=== PATIENT | female | born 1990 | race Caucasian/White ===

== ENCOUNTER 2018-04-03 00:24 | Emergency (ER) | payer OTHER ==
[2018-04-03 01:24] LABS: APPEARANCE,URINE TURBID; BILIRUBIN,URINE NEGATIVE (NEGATIVE); COLOR,URINE YELLOW; GLUCOSE, URINE NEGATIVE (NEGATIVE); KETONES,URINE NEGATIVE (NEGATIVE); LEUKOCYTE ESTERASE,URINE NEGATIVE (NEGATIVE); NITRITE,URINE NEGATIVE (NEGATIVE); PROTEIN,URINE NEGATIVE (NEGATIVE); URINE SPECIFIC GRAVITY 1.021; UROBILINOGEN,URINE NEGATIVE mg/dL (<2.0)
--- NOTE | 2018-04-03 01:26 | ER Document Report ---
ED General - General Chief Complaint: Flank Pain Stated Complaint: FLANK PAIN Time Seen by Provider: 04/03/18 00:46 Notes: Patient is a 28-year-old female with a past medical history of ulcerative colitis currently off all immune suppressants which she did self discontinue who presents with 3-4 days of bilateral flank pain as well as lower abdominal pain. The patient states that this pain started gradually and has gotten progressively worse since onset. It is described as a stabbing, aching, constant pain. She denies a history of similar symptoms in the past. Nothing seems to improve or worsen the pain. She does not have a local primary care doctor. She denies fever or constitutional symptoms but does state that she has some nausea but no vomiting. TRAVEL OUTSIDE OF THE [place] IN LAST 30 DAYS: No Past Medical History - General Information source: Patient - Social History Smoking Status: Never Smoker Frequency of alcohol use: None Drug Abuse: None Lives with: Spouse/Significant other Family History: Reviewed & Not Pertinent Review of Systems - Review of Systems Notes: Constitutional: Negative for fever. HENT: Negative for sore throat. Eyes: Negative for visual changes. Cardiovascular: Negative for chest pain. Respiratory: Negative for shortness of breath. Gastrointestinal: Positive for abdominal pain and nausea Genitourinary: Negative for dysuria. Musculoskeletal: Negative for back pain. Skin: Negative for rash. Neurological: Negative for headaches, weakness or numbness. 10 point ROS negative except as marked above and in HPI. Physical Exam - Vital signs Vitals: Temp Pulse Resp BP Pulse Ox 97 F L 80 16 104/61 97 04/03/18 00:29 04/03/18 00:29 04/03/18 00:29 04/03/18 00:29 04/03/18 00:29 Interpretation: Normal Notes: PHYSICAL EXAMINATION: GENERAL: Appears moderately uncomfortable but in no acute distress HEAD: Atraumatic, normocephalic. EYES: Pupils equal round and reactive to light, extraocular movements intact, sclera anicteric, conjunctiva are normal. ENT: nares patent, oropharynx clear without exudates. Moderately dry ucous membranes. NECK: Normal range of motion, supple without lymphadenopathy LUNGS: Breath sounds clear to auscultation bilaterally and equal. No wheezes rales or rhonchi. HEART: Regular rate and rhythm without murmurs ABDOMEN: Soft, mild suprapubic abdominal tenderness but no other areas of localized tenderness, normoactive bowel sounds. No guarding, no rebound. No masses appreciated. Bilateral CVA tenderness EXTREMITIES: Normal range of motion, no pitting or edema. No cyanosis. NEUROLOGICAL: No focal neurological deficits. Moves all extremities spontaneously and on command. PSYCH: Normal mood, normal affect. SKIN: Warm, Dry, normal turgor, no rashes or lesions noted. Course - Re-evaluation Re-evalutation: 04/03/18 01:26 Patient presents with bilateral flank tenderness and suprapubic abdominal pain that has been ongoing for the past 4 days. On abdominal exam she has tenderness to the upper central abdomen as well as the bilateral flanks but is otherwise well in appearance and has an overall benign abdominal exam. Vitals are within normal to the time of initial assessment. Patient does report that her pain is worse with breathing although it is entirely within the abdomen and flanks. She is PERC criteria negative and I do not clinically suspect an acute pulmonary embolus. The patient does have ulcerative colitis and has not been on any form of immune suppressant for the past 1 year. An ulcerative colitis flare could certainly be a part of the patient's clinical presentation. Labs are pending. Urinalysis is clear without any evidence of pyelonephritis which would clinically fit the patient's picture but is not supported by her urine study. Will also perform a CT the abdomen and pelvis with IV contrast to further clar parmjit as the patient does have ulcerative colitis that is currently untreated. 04/03/18 04:02 CT scan of the abdomen pelvis does reveal findings consistent with an acute ulcerative colitis exacerbation which is clinically consistent with patient's self discontinuation of immune suppressants. Labs otherwise unremarkable. Patient has been given 500 mg of Solu-Medrol IV and will be started on a 7-day course of prednisone. I have strongly advised reestablishing care with GI and resumption of long-standing immune suppressants. At this time will discharge with return precautions and follow-up recommendations. Verbal discharge instructions given a the bedside and opportunity for questions given. Medication warnings reviewed. Patient is in agreement with this plan and has verbalized understanding of return precautions and the need for primary care follow-up in the next 24-72 hours. - Vital Signs Vital signs: Temp Pulse Resp BP Pulse Ox 97 F L 80 16 104/61 97 04/03/18 00:29 04/03/18 00:29 04/03/18 00:29 04/03/18 00:29 04/03/18 00:29 - Laboratory Result Diagrams: 04/03/18 02:24 04/03/18 02:24 Laboratory results interpreted by me: 04/03/18 04/03/18 01:05 02:24 Hgb 11.1 L Hct 34.3 L RDW 14.5 H Monocytes % 15.0 H Eosinophils % 11.7 H Absolute Eosinophils 0.8 H ESR 41 H Urine Ascorbic Acid 20 H - Diagnostic Test Radiology reviewed: Image reviewed, Reports reviewed Radiology results interpreted by me: 04/03/18 04:03 CT abdomen and pelvis: Diffuse colonic inflammation Discharge - Discharge Clinical Impression: Bilateral flank pain, Lower abdominal pain Ulcerative colitis with complication Qualifiers: Ulcerative colitis location: ulcerative pancolitis Qualified Code(s): K51.019 - Ulcerative (chronic) pancolitis with unspecified complications Condition: Good Disposition: HOME, SELF-CARE Additional Instructions: You were seen today for bilateral flank pain and lower abdominal pain. Your labs and CAT scan are consistent with this being an ulcerative colitis flare. You have been started on steroids here in the emergency department and will be discharged home on a 7-day course of prednisone. It is critical that you follow-up with GI medicine and get restarted on long-standing immune suppressants. Please return to the emergency department immediately if you develop a fever of greater than 100.4 F, worsening of your pain, persistent vomiting, rectal bleeding, or any other symptoms that are worrisome to you. Prescriptions: Prednisone [Deltasone 20 mg Tablet] 2 tab PO DAILY 7 Days tablet
[2018-04-03] MEDS ORDERED: RINGERS SOLUTION,LACTATED 1,000 ML IV ONE (01:40)
[2018-04-03] MEDS ORDERED: KETOROLAC TROMETHAMINE INJ/PF 30 MG/1 ML SDV IV ONE (01:40)
[2018-04-03 02:32] LABS: ABSOLUTE EOSINOPHILS # (AUTO) 0.8 10^3/uL (0.0-0.6); ABSOLUTE LYMPHOCYTES (AUTO) 1.1 10^3/uL (0.5-4.7); ABSOLUTE MONOCYTES (AUTO) 1.1 10^3/uL (0.1-1.4); BASOPHILS % (AUTO) 0.5 % (0-2); EOSINOPHILS % (AUTO) 11.7 % (0-6); HEMATOCRIT 34.3 % (36.0-47.0); HEMOGLOBIN 11.1 g/dL (12.0-15.5); LYMPHOCYTES % (AUTO) 15.6 % (13-45); MEAN CORPUSCULAR HEMOGLOBIN 27.7 pg (27.0-33.4); MEAN CORPUSCULAR HGB CONC 32.3 g/dL (32.0-36.0); MEAN CORPUSCULAR VOLUME 86 fl (80-97); PLATELET COUNT 266 10^3/uL (150-450); RED BLOOD COUNT 4.01 10^6/uL (3.72-5.28); RED CELL DISTRIBUTION WIDTH 14.5 % (11.5-14.0); SEGMENTED NEUTROPHILS % (AUTO) 57.2 % (42-78); TOTAL CELLS COUNTED % (AUTO) 100 %
[2018-04-03 03:20] LABS: ERYTHROCYTE SEDIMENTATION RATE 41 mm/hr (0-20)
--- NOTE | 2018-04-03 03:29 | RADIOLOGY REPORT (SQ) ---
EXAM DESCRIPTION: CT ABDOMEN PELVIS WITH IV CONTRAST COMPLETED DATE/TME: 04/03/2018 01:35 CLINICAL HISTORY: 28 years, Female, bilateral flank/abdominal pain, hx uc COMPARISON: None. TECHNIQUE: 369 Images stored on PACS. All CT scanners at this facility use dose modulation, iterative reconstruction, and/or weight based dosing when appropriate to reduce radiation dose to as low as reasonably achievable (ALARA). [facility]: Dose Right [facility]: CareDose [facility]: Dose Right [facility]: Teradose 4D [facility]: Satispay LIMITATIONS: None. FINDINGS: Limited evaluation of the lung bases is unremarkable. Osseous structures are grossly intact. The liver, spleen, adrenal glands, pancreas, kidneys are unremarkable. The gallbladder is present, contracted. Large amount of stool in the colon. No free air or free fluid. Normal appendix. Wall thickening of the cecum, ascending colon and hepatic flexure with minor adjacent inflammatory change. A subjective area of more focal, irregular and circumferential narrowing of the colon near the hepatic flexure, axial image #26, series #3. Remaining bowel loops are grossly unremarkable. IMPRESSION: Wall thickening of the cecum and descending colon, with a subjective more focal area of irregular and circumferential wall thickening of the hepatic flexure. There is minor surrounding inflammatory change. Findings likely reflect the patient's known ulcerative colitis/inflammatory bowel disease. However, continued follow-up is recommended. Large amount of stool in the colon. TECHNICAL DOCUMENTATION: Quality ID # [id number]: Final reports with documentation of one or more dose reduction techniques (e.g., Automated exposure control, adjustment of the mA and/or kV according to patient size, use of iterative reconstruction technique) copyright 2011 [employer]- All Rights Reserved
[2018-04-03] MEDS ORDERED: METHYLPREDNISOLONE INJ 40 MG/1 ML SDV IV ONE (04:00)
[2018-04-03 04:02] LABS: ALANINE AMINOTRANSFERASE 18 U/L (9-52); ALBUMIN 2.9 g/dL (3.5-5.0); ALKALINE PHOSPHATASE 72 U/L (38-126); ANION GAP 7 (5-19); ASPARTATE AMINO TRANSFERASE 26 U/L (14-36); BILIRUBIN,DIRECT 0.2 mg/dL (0.0-0.4); BILIRUBIN,TOTAL 0.3 mg/dL (0.2-1.3); BLOOD UREA NITROGEN 25 mg/dL (7-20); CALCIUM 8.5 mg/dL (8.4-10.2); CARBON DIOXIDE 21 mmol/L (22-30); CHLORIDE 110 mmol/L (98-107); GLUCOSE 86 mg/dL (75-110); LIPASE 46.2 U/L (23-300); POTASSIUM 4.6 mmol/L (3.6-5.0); SODIUM 138.2 mmol/L (137-145); TOTAL PROTEIN 5.1 g/dL (6.3-8.2)
[2018-04-03] MEDS ORDERED: METHYLPREDNISOLONE INJ 125 MG/2 ML SDV ONE (05:04)
[2018-04-03 05:25] VITALS: BP 110/60
--- NOTE | 2018-04-03 12:57 | EKG REPORT ---
SEVERITY:- OTHERWISE NORMAL ECG - SINUS RHYTHM LOW VOLTAGE IN FRONTAL LEADS : Confirmed by: Camryn Luevano 03-Apr-2018 12:56:56
== END 2018-04-03 05:33 | disposition home or self-care (01) ==
LOC: ER 00:24
DX: K51.019 Ulcerative (chronic) pancolitis with unspecified complications (principal); R10.30 Lower abdominal pain, unspecified; R10.9 Unspecified abdominal pain; R11.0 Nausea
CPT/HCPCS: 93005; 99284; 96361; 96374; 96375; 36415; 83690; 85025; 85652; 81025; 86140; 80053; 81001; 74177; 93010; J2920; J1885; J7120